=== PATIENT | male | born 1970 | race Caucasian/White ===

== ENCOUNTER 2017-03-13 10:57 | Emergency (ER) | payer BC ==
[2017-03-13 11:04] VITALS: BP 136/98; BMI 27.1
--- NOTE | 2017-03-13 11:31 | DR.GENAD ---
HPI - PCP Primary Care Physician: nfd - Complaint/Symptoms Chief Complaint Doctors Comments: Patient admits to dental pain is being treated by his dentist with hydrocodone 10/325 and augmentin. He states that he was referred to ENT for re-evaluation but he is out. He is afebrile and has no edema of jaw. He admits to a history of sinusitis and is being treated for such. Chief Complaint:: Pt had a root canal done 3 weeks ago and has been having severe pain. He seen his dentist and they referred him to an ENT. The ENT was unable to see him until another month - Source History Provided: Patient - Mode of Arrival Mode of Arrival: Ambulatory - Timing Onset of Chief Complaint: 02/11/17 PMH - PMH Past Medical History: No Past Surgical History: Yes Surgical History: Appendectomy, Cholecystectomy, Other Past Surgical History Comment: mass removed from lower back - Family History History of Family Medical Conditions: Yes Family Medical History: Diabetes Mellitus, [place], Hypertension - Social History Does patient currently use any type of tobacco product: No Have you used tobacco products in the last 12 months: No Type of Tobacco Use: None Does any household member use tobacco: No Alcohol Use: Rarely Do you use any recreational Drugs:: No Lives With: Family Lives Where: Home - infectious screening In the last 2 months have you had wt loss of >10#?: NO Have you had fever, night sweats or hemotysis?: No Have you traveled outside the country in the last 6 months?: Yes Details about traveling: [facility] on a cruise in december Isolation: Standard ROS - Review of Systems Constitutional: No Symptoms Reported Eyes: No Symptoms Reported ENTM: No Symptoms Reported Respiratoy: No Symptoms Reported Cardiovascular: No Symptoms Reported Gastrointestinal/Abdominal: No Symptoms Reported Genitourinary: No Symptoms Reported Neurological: No Symptoms Reported Musculoskeletal: No Symptoms Reported Integumentary: No Symptoms Reported Hematologic/Lymphatic: No Symptoms Reported Endocrine: No Symptoms Reported Psychiatric: No Symptoms Reported All Other Systems: Reviewed and Negative PE - Vital Signs Vitals: Temperature 98.1 F Pulse Rate 97 Respiratory Rate 18 Blood Pressure 136/98 O2 Sat by Pulse Oximetry 100 - General Limitations: No Limitations General Appearance: Alert, In No Apparent Distress - Head Head Exam: Normal Inspection - Eyes Eye exam: Normal Appearance - ENT ENT Exam: Normal Exam External Ear Exam: Normal External Inspection TM/Canal Exam: Right Normal Nose Exam: Normal Nose Exam Mouth Exam: Normal Inspection Throat Exam: Normal Inspection - Neck Neck Exam: Normal Inspection, Full ROM - Chest Chest Inspection: Normal Inspection - Respiratory Respiratory Exam: Normal Lung Sounds Bilat Respiratory Exam: Bilateral Clear to Auscultation - Cardiovascular Cardiovascular Exam: Regular Rate, Normal Rhythm - Abdominal Exam Abdominal Exam: Normal Inspection Abdominal Tenderness: negative: RUQ, RLQ, LUQ, LLQ, Epigastrium, Suprapubic, Diffuse, Mild, Moderate, Severe, Other - Extremities Extremities Exam: Normal Inspection, Full ROM - Back Back Exam: Normal Inspection - Neurologic Neurological Exam: Alert, Oriented X3, CN II-XII Intact - Psychiatric Psychiatric Exam: Normal Affect - Skin Skin Exam: Warm, Dry, Intact ROR - XRAY XRAY Interpreted by: Radiologist (Significant opacification of the left maxillary, ethmoid and both frontal sinuses with compromise of the left nasal airway. Right maxillary, ethmoid and both sphenoid sinuses are well aerated and clear. The left ostiomeatal complex is completlly occulded by mucosal soft tissue. The right ostiomeatal complex is completely occluded by mucosal soft tissue. The right osteomeatal complex is clear.) - Diagnosis Discharge Problem: Chronic panethmoidal sinusitis - Discharge Plan Condition: Stable - Follow ups/Referrals Follow ups/Referrals: NFD,None [Primary Care Provider] - 3 days - Instructions
--- NOTE | 2017-03-13 12:34 | CT ---
HISTORY: Chronic sinusitis. Patient states sinus pain and headache and left-sided toothache since Fr iday Study: CT paranasal sinuses without contrast Comparison: No priors Technique: Multiple axial images of the paranasal sinuses were obtained without the administration o f IV contrast. Coronal and sagittal reformats were performed and reviewed. Findings: Right maxillary and ethmoid sinus and the sphenoid sinuses are well aerated and clear . There is tot al opacification of the left maxillary sinus and left ostiomeatal complex. There is near-total opaci fication of the left ethmoid sinus and left nasal airway. The bony nasal septum is midline . There i s mucosal thickening present involving both frontal sinuses. No significant air-fluid level is seen. There is bilateral nasal turbinate swelling. Visualized portions of the posterior fossa and intracr anial structures are unremarkable as well. IMPRESSION: Significant opacification of left maxillary, ethmoid and both frontal sinuses with compromise of the left nasal airway as described. Right maxillary, ethmoid and both sphenoid sinuses are well aerated and clear. The left ostiomeatal complex is completely occluded by mucosal soft tissue. The right os tiomeatal complex is clear. Reported By:
== END 2017-03-13 12:48 | disposition home or self-care (01) ==
LOC: ER 11:12
DX: J32.2 Chronic ethmoidal sinusitis (principal)
CPT/HCPCS: 70486; 99282

== ENCOUNTER 2017-12-22 07:36 | Emergency (ER) | payer BC ==
[2017-12-22] MEDS ORDERED: NS 1000 ML 1,000 ML ONE (07:39)
[2017-12-22] MEDS ORDERED: TORADOL 30 MG VIAL ONE (07:43)
[2017-12-22] MEDS ORDERED: ZOFRAN INJ 4 MG VIAL ONE (07:43)
[2017-12-22 07:54] VITALS: BP 134/84; BMI 24.3
[2017-12-22] MEDS ORDERED: TORADOL 30 MG VIAL IVP ONE (07:55)
[2017-12-22] MEDS ORDERED: ZOFRAN INJ 4 MG VIAL IVP ONE (07:55)
[2017-12-22] MEDS ORDERED: DILAUDID INJ IVP ONE (07:57)
[2017-12-22] MEDS ORDERED: NS 1000 ML 1,000 ML IV ONE (07:58)
[2017-12-22] MEDS ORDERED: DILAUDID INJ ONE (07:59)
--- NOTE | 2017-12-22 08:26 | DR.GENAD ---
HPI - PCP Primary Care Physician: demetrius - HPI Comment HPI Comment: NO FEVER OR DYSURIA. GETTING WORSE. - Complaint/Symptoms Chief Complaint Doctors Comments: LEFT FLANK AND LEFT ABDOMINAL PAIN NOTED THIS AM WITH N/V. Chief Complaint:: patient stated he started having left flank pain this morning that comes around to his lower abd. pt statted he has a history of kidney stones - Nurses notes reviewed Nurses Notes Review: Yes - Source History Provided: Patient - Mode of Arrival Mode of Arrival: Ambulatory - Timing Onset of Chief Complaint: 12/22/17 Came on: Suddenly - Duration Duration: Constant Duration: Hours - Severity Severity: Moderate PMH - PMH Past Medical History: No Past Surgical History: Yes Surgical History: Appendectomy, Cholecystectomy, Other - Family History History of Family Medical Conditions: Yes Family Medical History: Diabetes Mellitus, [place], Hypertension - Social History Does patient currently use any type of tobacco product: No Have you used tobacco products in the last 12 months: No Type of Tobacco Use: None Does any household member use tobacco: No Alcohol Use: None Do you use any recreational Drugs:: No Lives With: Family Lives Where: Home - infectious screening In the last 2 months have you had wt loss of >10#?: NO Have you had fever, night sweats or hemotysis?: No Have you traveled outside the country in the last 6 months?: No Isolation: Standard ROS - Review of Systems Constitutional: No Symptoms Reported Eyes: No Symptoms Reported ENTM: No Symptoms Reported Respiratoy: No Symptoms Reported Cardiovascular: No Symptoms Reported Gastrointestinal/Abdominal: Nausea, Vomiting Genitourinary: Pain, Other (LEFT FLANK PAIN) Neurological: No Symptoms Reported Musculoskeletal: Back Pain Integumentary: No Symptoms Reported Hematologic/Lymphatic: No Symptoms Reported Endocrine: No Symptoms Reported All Other Systems: Reviewed and Negative PE - Vital Signs Vitals: Temperature 98.9 F Pulse Rate 99 Respiratory Rate 20 Blood Pressure 134/84 O2 Sat by Pulse Oximetry 99 - General Limitations: No Limitations General Appearance: In No Apparent Distress - Head Head Exam: Normal Inspection - Eyes Eye exam: Normal Appearance - ENT ENT Exam: Normal Exam External Ear Exam: Normal External Inspection TM/Canal Exam: Bilateral Normal Nose Exam: Normal Nose Exam Mouth Exam: Normal Inspection Throat Exam: Normal Inspection - Neck Neck Exam: Normal Inspection - Chest Chest Inspection: Normal Inspection - Respiratory Respiratory Exam: Normal Lung Sounds Bilat Respiratory Exam: Bilateral Clear to Auscultation - Cardiovascular Cardiovascular Exam: Regular Rate, Normal Rhythm, Normal Heart Sounds - Abdominal Exam Abdominal Exam: Normal Bowel Sounds, Soft, Tenderness (LEFT FLANK AND LEFT LOWER ABDOMEN.) Abdominal Tenderness: LLQ, Suprapubic, Moderate - Extremities Extremities Exam: Normal Inspection - Back Back Exam: (L) CVA Tenderness - Neurologic Neurological Exam: Alert, Oriented X3 - Psychiatric Psychiatric Exam: Anxious - Skin Skin Exam: Normal Color MDM - Additional Information Additional Information Obtained From: Family - Differential Diagnosis Differential Diagnosis: KIDNEY STONE, UTI, MUSCULOSKELETAL PAIN Course - Treatment Treatment: SEE ORDERS. 1L NS IV BOLUS AND IV ZOFRAN, PHENERGAN, TORADOL AND DILAUDID IN ED. - Reevaluation 1st: Improved - Education/Counseling Education/Counseling: Patient, Family, Education Educated On: Treatment, Diagnosis, Needs for Follow Up ROR - Labs Reviewed Laboratory Results Reviewed?: Yes Result Diagrams: 12/22/17 08:58 12/22/17 08:58 Laboratory: WBC 10.9 X10^3/uL (3.6-10.0) H 12/22/17 08:58 RBC 4.83 X10^6/uL (4.7-6.0) 12/22/17 08:58 Hgb 14.6 g/dL (13.5-18.0) 12/22/17 08:58 Hct 42.2 % (42.0-54.0) 12/22/17 08:58 MCV 87.3 fL (80.0-100.0) 12/22/17 08:58 MCH 30.1 pg (27.0-34.0) 12/22/17 08:58 MCHC 34.5 g/dL (33.0-35.0) 12/22/17 08:58 RDW 13.4 % (11.6-16.5) 12/22/17 08:58 Plt Count 231 X10^3/uL (150.0-450.0) 12/22/17 08:58 MPV 8.1 fL (7.4-11.0) 12/22/17 08:58 Neut % 82.1 % (42.0-75.0) H 12/22/17 08:58 Lymph % 11.3 % (21.0-51.0) L 12/22/17 08:58 [place] % 4.9 % (0.0-13.0) 12/22/17 08:58 Eos % 0.6 % (0.9-2.9) L 12/22/17 08:58 Baso % 1.1 % (0.2-1.0) H 12/22/17 08:58 Neut # 8.9 x10^3/uL (2.2-4.8) H 12/22/17 08:58 Lymph # 1.2 X10^3/uL (1.3-2.9) L 12/22/17 08:58 [place] # 0.5 x10^3/uL (0.3-0.8) 12/22/17 08:58 Eos # 0.1 x10^3/uL (0.0-0.2) 12/22/17 08:58 Baso # 0.1 X10^3/uL (0.0-0.1) 12/22/17 08:58 Absolute Nucleated RBC 0.0 /100WBC 12/22/17 08:58 Sodium 143 mmol/L (136-145) 12/22/17 08:58 Corrected Sodium 145 mmol/L (136-145) 12/22/17 08:58 Potassium 3.6 mmol/L (3.5-5.1) 12/22/17 08:58 Chloride 108 mmol/L (98-107) H 12/22/17 08:58 Carbon Dioxide 28.3 mmol/L (21-32) 12/22/17 08:58 BUN 14 mg/dL (7-18) 12/22/17 08:58 Creatinine 1.06 mg/dL (0.70-1.30) 12/22/17 08:58 Est GFR (MDRD) Af Amer > 60 (>60) 12/22/17 08:58 Est GFR (MDRD) Non-Af > 60 (>60) 12/22/17 08:58 Glucose 166 mg/dL (65-99) H 12/22/17 08:58 Calcium 8.2 mg/dL (8.5-10.1) L 12/22/17 08:58 Corrected Calcium 8.8 mg/dL (8.5-10.1) 12/22/17 08:58 Total Bilirubin 0.40 mg/dL (0.2-1.0) 12/22/17 08:58 AST 24 Units/L (15-37) 12/22/17 08:58 ALT 36 Units/L (12-78) 12/22/17 08:58 Alkaline Phosphatase 75 Units/L (46-116) 12/22/17 08:58 Total Protein 6.1 g/dL (6.4-8.2) L 12/22/17 08:58 Albumin 3.2 g/dL (3.4-5.0) L 12/22/17 08:58 Globulin 2.9 g/dL (2.5-4.5) 12/22/17 08:58 Albumin/Globulin Ratio 1.1 Ratio (1.1-2.1) 12/22/17 08:58 Specimen Type Clean catch urine 12/22/17 08:12 Urine Color Yellow (YELLOW) 12/22/17 08:12 Urine Appearance Slightly hazy (CLEAR) 12/22/17 08:12 Urine pH 5.0 (5.0 - 8.0) 12/22/17 08:12 Ur Specific Veteran 1.025 (1.000-1.030) 12/22/17 08:12 Urine Protein 2+ (NEGATIVE) 12/22/17 08:12 Urine Glucose (UA) Negative (NEGATIVE) 12/22/17 08:12 Urine Ketones 1+ (NEGATIVE) 12/22/17 08:12 Urine Occult Blood 2+ (NEGATIVE) 12/22/17 08:12 Urine Nitrite Negative (NEGATIVE) 12/22/17 08:12 Urine Bilirubin Negative (NEGATIVE) 12/22/17 08:12 Urine Urobilinogen 1+ (NORMAL) 12/22/17 08:12 Ur Leukocyte Esterase 1+ (NEGATIVE) 12/22/17 08:12 Urine RBC 0 - 3 /HPF (NEGATIVE) 12/22/17 08:12 Urine WBC 0 - 4 /HPF (NEGATIVE) 12/22/17 08:12 Ur Squamous Epith Cells Rare /HPF (NEGATIVE) 12/22/17 08:12 Amorphous Sediment 2+ /HPF (NEGATIVE) 12/22/17 08:12 Urine Bacteria Negative /HPF (NEGATIVE) 12/22/17 08:12 Hyaline Casts Rare /LPF (NEGATIVE) 12/22/17 08:12 Ur Culture Indicated? No/not indicated 12/22/17 08:12 - XRAY XRAY Interpreted by: Radiologist XRAY Findings: REPORT DISCUSS WITH PATIENT. - Diagnosis Discharge Problem: Left flank pain, Kidney stone on left side - Discharge Plan Condition: Stable Prescriptions: Hydrocodone-Acet 5 mg/325 mg [[place] 5/325 mg Tab] 1 tab PO Q6H PRN #15 tab PRN Reason: Pain Ketorolac Tromethamine [Toradol Tab] 10 mg PO Q8H PRN #15 tab PRN Reason: Pain Tamsulosin HCl [Flomax] 0.4 mg PO DAILY #10 cap - Follow ups/Referrals Follow ups/Referrals: NFD,None [Primary Care Provider] - 3 days CESILIA DAVILA [STAFF PHYSICIAN] - 3 days DOMINIK ARMENDARIZ [CONSULTING PHYSICIAN] - 3 days - Instructions Instructions: Kidney Stones, [id number], Hydronephrosis Additional Instructions: RETURN TO ED IF WORSE.
[2017-12-22 08:33] LABS: BILIRUBIN,URINE NEGATIVE (NEGATIVE); BLOOD/HEMOGLOBIN,URINE 2+ (NEGATIVE); GLUCOSE, URINE NEGATIVE (NEGATIVE); KETONES,URINE 1+ (NEGATIVE); LEUKOCYTE ESTERASE ,URINE 1+ (NEGATIVE); NITRITES,URINE NEGATIVE (NEGATIVE); PROTEIN,URINE 2+ (NEGATIVE); UROBILINOGEN,URINE 1+ (NORMAL)
[2017-12-22 08:37] LABS: APPEARANCE,URINE SLIGHTLY HAZY (CLEAR); COLOR,URINE YELLOW (YELLOW)
[2017-12-22] MEDS ORDERED: PHENERGAN INJ 25 MG IV ONE (08:49)
--- NOTE | 2017-12-22 08:49 | CT ---
HISTORY: Left flank pain Study: CT abdomen without contrast Comparison: None Technique: Multiple axial, coronal, and sagittal CT images of the abdomen were reviewed without contr ast. AEC was utilized. Findings: The lung bases are clear. There is no pneumoperitoneum. No destructive osseous lesions are identified . The patient is status post cholecystectomy. The liver, spleen, pancreas, adrenals, and right kidney are unremarkable. There is mild left-sided perinephric stranding and hydronephrosis with a 2-[address] one at the UVJ. There is no free fluid. No bowel wall thickening or distention is identified on this noncontrast exam. IMPRESSION: 2-3 mm left UVJ stone with mild obstructive uropathy. Reported By:
[2017-12-22] MEDS ORDERED: PHENERGAN INJ 25 MG ONE (08:50)
[2017-12-22 08:53] LABS: RBC,URINE 0 - 3 /HPF (NEGATIVE); SQUAMOUS EPITHELIAL CELL,UR RARE /HPF (NEGATIVE)
[2017-12-22 08:54] LABS: AMORPHOUS SEDIMENT,UR 2+ /HPF (NEGATIVE); BACTERIA,URINE NEGATIVE /HPF (NEGATIVE); HYALINE CASTS, URINE RARE /LPF (NEGATIVE)
[2017-12-22] MEDS ORDERED: FLOMAX PO ONE (08:58)
[2017-12-22 09:15] LABS: BASOPHILS # (AUTO) 0.1 X10^3/uL (0.0-0.1); BASOPHILS % (AUTO) 1.1 % (0.2-1.0); EOSINOPHILS # (AUTO) 0.1 x10^3/uL (0.0-0.2); EOSINOPHILS % (AUTO) 0.6 % (0.9-2.9); HEMATOCRIT 42.2 % (42.0-54.0); HEMOGLOBIN 14.6 g/dL (13.5-18.0); LYMPHOCYTES # (AUTO) 1.2 X10^3/uL (1.3-2.9); LYMPHOCYTES % (AUTO) 11.3 % (21.0-51.0); MEAN CORPUSCULAR HEMOGLOBIN 30.1 pg (27.0-34.0); MEAN CORPUSCULAR HGB CONC 34.5 g/dL (33.0-35.0); MEAN CORPUSCULAR VOLUME 87.3 fL (80.0-100.0); MEAN PLATELET VOLUME 8.1 fL (7.4-11.0); MONOCYTES # (AUTO) 0.5 x10^3/uL (0.3-0.8); MONOCYTES % (AUTO) 4.9 % (0.0-13.0); NEUTROPHILS # (AUTO) 8.9 x10^3/uL (2.2-4.8); NEUTROPHILS % (AUTO) 82.1 % (42.0-75.0); PLATELET COUNT 231 X10^3/uL (150.0-450.0); RED BLOOD COUNT 4.83 X10^6/uL (4.7-6.0); RED CELL DISTRIBUTION WIDTH 13.4 % (11.6-16.5); WHITE BLOOD COUNT 10.9 X10^3/uL (3.6-10.0)
[2017-12-22 09:27] LABS: ALANINE AMINOTRANSFERASE 36 Units/L (12-78); ALBUMIN 3.2 g/dL (3.4-5.0); ASPARTATE AMINO TRANSFERASE 24 Units/L (15-37); BLOOD UREA NITROGEN 14 mg/dL (7-18); CALCIUM 8.2 mg/dL (8.5-10.1); CARBON DIOXIDE 28.3 mmol/L (21-32); CHLORIDE 108 mmol/L (98-107); COR CA(FOR HYPOALB) 8.8 mg/dL (8.5-10.1); COR NA(FOR HYPERGLY) 145 mmol/L (136-145); CREATININE 1.06 mg/dL (0.70-1.30); SODIUM 143 mmol/L (136-145); eGFR BLACK RACES > 60 (>60); eGFR NON BLACK RACES > 60 (>60)
[2017-12-22 09:43] LABS: ALKALINE PHOSPHATASE 75 Units/L (46-116); TOTAL PROTEIN 6.1 g/dL (6.4-8.2)
== END 2017-12-22 10:13 | disposition home or self-care (01) ==
LOC: ER 07:36
DX: N20.0 Calculus of kidney (principal); R10.32 Left lower quadrant pain
CPT/HCPCS: 36415; 74176; 80053; 81001; 85025; 96365; 96367; 96374; 96375; 99283; 99284; A4222; J1170; J1885; J2405; J2550

== ENCOUNTER 2018-07-13 21:34 | Observation (INO) ==
--- NOTE | 2018-07-13 23:21 | DR.GENAD ---
HPI PCP Primary Care Physician: KEELY HPI Comment HPI Comment: THIS HAPPEN TINIGHT SUDDENLY WHILE PATIENT WAS WATCHING TV. PATIENT DENIES TRAUMA, NO FEVER OR SINUS DRAINAGE. DENIES HISTORY OF HYPERTENSION OR DIABETES. Complaint/Symptoms Chief Complaint Doctors Comments: PATIENT SEEN AT 23:12PM. RIGHT EYE PAIN AND BLURRED VISION RIGHT EYE. PATIENT SAID RIGHT HALF OF HIS FACE Chief Complaint:: Within the hour, the patient states he was watching tv and he noticed his vision was getting blurry. So he cleaned his glasses, and noticed his vision was getting more blurry. At the moment the patient feels pain from the inner right eye to the middle of the back of his head. Nurses notes reviewed Nurses Notes Review: Yes Source History Provided: Patient Mode of Arrival Mode of Arrival: Ambulatory Timing Onset of Chief Complaint: 07/13/18 Came on: Suddenly Duration Duration: Constant Duration: Hours Modifying Factors Worsens:: NONE Improves:: SLIGHT IMPROVEMENT SPONTAOUSLY. PMH PMH Past Medical History: No Past Surgical History: Yes Surgical History: Appendectomy, Cholecystectomy and Other Past Surgical History Comment: Mass removed from lower lumbar in back. Family History History of Family Medical Conditions: Yes Family Medical History: Diabetes Mellitus, Coronary Artery Disease and Heart Failure Social History Alcohol Use: None Do you use any recreational Drugs:: No Lives With: Alone Lives Where: Home infectious screening Have you traveled outside the country in the last 6 months?: No Isolation: Standard ROS Review of Systems Constitutional: No Symptoms Reported Eyes: Eye Pain, Blurred Vision (RT EYE.) and Diplopia (RT EYE.) ENTM: No Symptoms Reported; negative Ear Pain, Nose Discharge, Nose Congestion and Throat Pain Respiratoy: No Symptoms Reported Cardiovascular: No Symptoms Reported Gastrointestinal/Abdominal: No Symptoms Reported Genitourinary: No Symptoms Reported Neurological: Headache Musculoskeletal: No Symptoms Reported Integumentary: No Symptoms Reported Hematologic/Lymphatic: No Symptoms Reported Endocrine: No Symptoms Reported Psychiatric: No Symptoms Reported All Other Systems: Reviewed and Negative PE Vital Signs Vitals: Temperature 98.3 F Pulse Rate 89 Respiratory Rate 20 Blood Pressure 127/87 O2 Sat by Pulse Oximetry 97 General Limitations: No Limitations General Appearance: Alert and In No Apparent Distress Head Head Exam: Normal Inspection Eyes Eye exam: Normal Appearance, PERRL, EOMI and Mydrasis; negative Scleral Icterus , Conjunctival Injection, Nystagmus, Miosis, Periorbital Swelling and Periorbital Tenderness ENT ENT Exam: Normal Exam, Normal Oropharynx, Normal External Ear Exam and TM's Normal Bilaterally External Ear Exam: Normal External Inspection TM/Canal Exam: Left: Normal Nose Exam: Normal Nose Exam Mouth Exam: Normal Inspection Throat Exam: Normal Inspection Neck Neck Exam: Normal Inspection Chest Chest Inspection: Normal Inspection Respiratory Respiratory Exam: Normal Lung Sounds Bilat Respiratory Exam: Bilateral: Clear to Auscultation Cardiovascular Cardiovascular Exam: Regular Rate, Normal Rhythm and Normal Heart Sounds Abdominal Exam Abdominal Exam: Normal Inspection, Normal Bowel Sounds and Soft; negative Tenderness Extremities Extremities Exam: Normal Inspection Back Back Exam: Normal Inspection Neurologic Neurological Exam: Alert, Oriented X3, CN II-XII Intact, Normal Gait and Reflexes Normal; negative Motor Sensory Deficit Psychiatric Psychiatric Exam: Normal Affect and Normal Mood Skin Skin Exam: Warm, Dry, Intact and Normal Color MDM Differential Diagnosis Differential Diagnosis: AMAR[place]IS FUGUS, CVA, TIA, BLURRED VISION COURSE Treatment Treatment: SEE ORDERS. Consultation Consultation Comments: DISCUSS PATIENT WITH DR. MEJIAS. HE WILL ADMIT PATIENT. Education/Counseling Education/Counseling: Patient and Education Educated On: Diagnosis ROR Labs Reviewed Laboratory Results Reviewed?: Yes Result Diagrams: 07/14/18 02:06 07/14/18 02:06 Laboratory: WBC 7.7 X10^3/uL (3.6-10.0) 07/14/18 02:06 RBC 5.10 X10^6/uL (4.7-6.0) 07/14/18 02:06 Hgb 15.5 g/dL (13.5-18.0) 07/14/18 02:06 Hct 44.4 % (42.0-54.0) 07/14/18 02:06 MCV 87.0 fL (80.0-100.0) 07/14/18 02:06 MCH 30.4 pg (27.0-34.0) 07/14/18 02:06 MCHC 35.0 g/dL (33.0-35.0) 07/14/18 02:06 RDW 13.4 % (11.6-16.5) 07/14/18 02:06 Plt Count 246 X10^3/uL (150.0-450.0) 07/14/18 02:06 MPV 7.9 fL (7.4-11.0) 07/14/18 02:06 Neut % (Auto) 39.1 % (42.0-75.0) L 07/14/18 02:06 Lymph % (Auto) 49.7 % (21.0-51.0) 07/14/18 02:06 [place] % (Auto) 7.9 % (0.0-13.0) 07/14/18 02:06 Eos % (Auto) 2.3 % (0.9-2.9) 07/14/18 02:06 Baso % (Auto) 1.0 % (0.2-1.0) 07/14/18 02:06 Neut # (Auto) 3.0 x10^3/uL (2.2-4.8) 07/14/18 02:06 Lymph # (Auto) 3.8 X10^3/uL (1.3-2.9) H 07/14/18 02:06 [place] # (Auto) 0.6 x10^3/uL (0.3-0.8) 07/14/18 02:06 Eos # (Auto) 0.2 x10^3/uL (0.0-0.2) 07/14/18 02:06 Baso # (Auto) 0.1 X10^3/uL (0.0-0.1) 07/14/18 02:06 Absolute Nucleated RBC 0.0 /100WBC 07/14/18 02:06 INR Target Range - 07/14/18 02:06 INR 0.87 (0.8-1.3) 07/14/18 02:06 APTT 28.3 SECONDS (22.9-36.5) 07/14/18 02:06 PTT Comment - 07/14/18 02:06 Sodium 142 mmol/L (136-145) 07/14/18 02:06 Corrected Sodium TNP 07/14/18 02:06 Potassium 3.8 mmol/L (3.5-5.1) 07/14/18 02:06 Chloride 106 mmol/L (98-107) 07/14/18 02:06 Carbon Dioxide 31.7 mmol/L (21-32) 07/14/18 02:06 BUN 18 mg/dL (7-18) 07/14/18 02:06 Creatinine 0.98 mg/dL (0.70-1.30) 07/14/18 02:06 Est GFR (MDRD) Af Amer > 60 (>60) 07/14/18 02:06 Est GFR (MDRD) Non-Af > 60 (>60) 07/14/18 02:06 Glucose 102 mg/dL (65-99) H 07/14/18 02:06 Calcium 8.8 mg/dL (8.5-10.1) 07/14/18 02:06 Corrected Calcium TNP 07/14/18 02:06 Total Bilirubin 0.30 mg/dL (0.2-1.0) 07/14/18 02:06 AST 19 Units/L (15-37) 07/14/18 02:06 ALT 35 Units/L (12-78) 07/14/18 02:06 Alkaline Phosphatase 93 Units/L (46-116) 07/14/18 02:06 Total Protein 6.8 g/dL (6.4-8.2) 07/14/18 02:06 Albumin 3.6 g/dL (3.4-5.0) 07/14/18 02:06 Globulin 3.2 g/dL (2.5-4.5) 07/14/18 02:06 Albumin/Globulin Ratio 1.1 Ratio (1.1-2.1) 07/14/18 02:06 XRAY XRAY Interpreted by: Radiologist XRAY Findings: REPORT DISCUSS WITH PATIENT. EKG Rate: 64 [place]: Normal Rhythm: NSR Block: None ST: Normal Diagnosis Discharge Problem: Amaurosis fugax, Brain TIA, Blurred vision
[2018-07-13] MEDS ORDERED: FUL-GLO STRIP ONE ×2 (23:35→23:42)
--- NOTE | 2018-07-13 23:46 | CT ---
CT head without contrast Indication: Blurred vision in the left eye Comparison: None Technique: CT images of the head were obtained without contrast. Automatic exposure control was utili mimoOn. Findings: There is no acute bleed, mass effect, or abnormal extra-axial collection. The ventricles ar e symmetric and nondilated. The intraorbital soft tissues are grossly normal. No suspicious skeletal lesion. The visualized paranasal sinuses and mastoid air cells are essentially clear, with changes of previous left-sided sinus surgery. Impression: No acute intracranial abnormality. Reported By:
[2018-07-14 02:36] LABS: BASOPHILS # (AUTO) 0.1 X10^3/uL (0.0-0.1); EOSINOPHILS # (AUTO) 0.2 x10^3/uL (0.0-0.2); EOSINOPHILS % (AUTO) 2.3 % (0.9-2.9); HEMATOCRIT 44.4 % (42.0-54.0); HEMOGLOBIN 15.5 g/dL (13.5-18.0); LYMPHOCYTES # (AUTO) 3.8 X10^3/uL (1.3-2.9); LYMPHOCYTES % (AUTO) 49.7 % (21.0-51.0); MEAN CORPUSCULAR HEMOGLOBIN 30.4 pg (27.0-34.0); MEAN PLATELET VOLUME 7.9 fL (7.4-11.0); MONOCYTES # (AUTO) 0.6 x10^3/uL (0.3-0.8); MONOCYTES % (AUTO) 7.9 % (0.0-13.0); NEUTROPHILS % (AUTO) 39.1 % (42.0-75.0); PLATELET COUNT 246 X10^3/uL (150.0-450.0); RED CELL DISTRIBUTION WIDTH 13.4 % (11.6-16.5); WHITE BLOOD COUNT 7.7 X10^3/uL (3.6-10.0)
[2018-07-14 02:50] LABS: ALANINE AMINOTRANSFERASE 35 Units/L (12-78); ALBUMIN 3.6 g/dL (3.4-5.0); ALKALINE PHOSPHATASE 93 Units/L (46-116); ASPARTATE AMINO TRANSFERASE 19 Units/L (15-37); BLOOD UREA NITROGEN 18 mg/dL (7-18); CALCIUM 8.8 mg/dL (8.5-10.1); CARBON DIOXIDE 31.7 mmol/L (21-32); CHLORIDE 106 mmol/L (98-107); CREATININE 0.98 mg/dL (0.70-1.30); SODIUM 142 mmol/L (136-145); TOTAL PROTEIN 6.8 g/dL (6.4-8.2); eGFR NON BLACK RACES > 60 (>60)
[2018-07-14] MEDS ORDERED: ASPIRIN PO ONE (03:14)
[2018-07-14] MEDS ORDERED: ASPIRIN ONE (03:17)
[2018-07-14 05:17] VITALS: BMI 30.7
[2018-07-14 07:04] LABS: CHOL/HDL RATIO 5.4 (0.0-5.0); CHOLESTEROL 194 mg/dL (0-200); CREATINE KINASE 204 Units/L (39-308); HDL CHOLESTEROL 36 mg/dL (40-60); MAGNESIUM 2.1 mg/dL (1.7-2.9); TRIGLYCERIDES 82 mg/dL (0-150); TROPONIN I < 0.02 ng/mL (0-1.5)
[2018-07-14 07:25] LABS: CKMB % 0.9 % (<4); CREATINE KINASE MB 1.8 ng/mL (0-4.0)
[2018-07-14] MEDS: ASPIRIN PO SCH (09:19)
[2018-07-14 10:53] LABS: CKMB % 0.8 % (<4); CREATINE KINASE 197 Units/L (39-308); CREATINE KINASE MB 1.6 ng/mL (0-4.0); TROPONIN I < 0.02 ng/mL (0-1.5)
[2018-07-14 17:36] LABS: CKMB % 0.9 % (<4); CREATINE KINASE 167 Units/L (39-308); CREATINE KINASE MB 1.5 ng/mL (0-4.0); TROPONIN I < 0.02 ng/mL (0-1.5)
--- NOTE | 2018-07-14 18:05 | DR.H&P ---
H&P - History & Physical for Day of: H&P Date: 07/14/18 - Chief Complaint Chief Complaint: SUDDEN ONSET VISION IMPAIRMENT - History of Present Illness History of Present Illness: 47 WM ER ADMISSION WITH CO SUDDEN ONSET OF VISUAL IMPAIRMENT WHILE AT REST AND [employer]. PT STATES HE DOES WEAR CONTACTS OR GLASSES , BUT DENIES ANY NEW PRESCRIPTION CHANGES. NO CP OR SOB. PT HAS CT HEAD ON ADMISSION. PT DENIES ANY HX OF DM, CAD, OR HTN - Past Medical History Past Medical History: denies: Coronary Artery Disease, Diabetes, Hypertension - Past Surgical History Surgical History: Cholecystectomy, Other - Family History Family Medical History: Diabetes Mellitus, Coronary Artery Disease - Social History Does patient currently use any type of tobacco product: No Have you used tobacco products in the last 12 months: No Type of Tobacco Use: None Does any household member use tobacco: No Alcohol Use: Occasionally Drug Use: None - Medications Home Medications: No Known Drug Allergies Allergy (Verified 12/22/17 07:37) CONTINUE taking the following medications NK 07/14/18 [History] - Review of Systems Constitutional: No Symptoms Reported Eyes: Vision Change ENT: No Symptoms Reported Respiratory: No Symptoms Reported Cardiovascular: No Symptoms Reported Gastrointestinal: No Symptoms Reported Genitourinary: No Symptoms Reported Musculoskeletal: No Symptoms Reported Skin: No Symptoms Reported Neurological: Other (MEAD) - Physical Exam Vital Signs: Temperature 97.6 F Pulse Rate [Left Brachial] 65 Pulse Rate 89 Respiratory Rate 18 Blood Pressure [Left Arm] 131/78 Blood Pressure 127/87 O2 Sat by Pulse Oximetry 99 Oriented: Normal Eyes: Blurred Vision Ear: Normal Nose: Normal Throat: Normal Respiratory: Clear Throughout Cardiovascular: Normal : Normal, Hematuria Palpation: Normal Tenderness: Normal Skin: Normal Musculoskeletal: Normal Psychiatric: Normal Mood Description: Calm Speech Pattern: Clear, Appropriate - Assessment/Plan (1) Amaurosis fugax Status: Acute Plan: ADMIT, SERIAL CARDIAC ENZYMES, EKGS. MRI BRAIN W/O. OPTH CONSULTATION. BP MONITORING, ASPIRIN THERAPY (2) Blurred vision Status: Acute - Allergies Allergies/Adverse Reactions: Allergies Allergy/AdvReac Type Severity Reaction Status Date / Time No Known Drug Allergies Allergy Verified 12/22/17 07:37
--- NOTE | 2018-07-14 18:11 | MRI ---
MRI brain and orbits Indication: Patient with detached retina and complaint of left thigh blurring Technique: Multiplanar MRI images of the brain was performed with specialized sequences through the [facility]. Findings: There is no restricted diffusion. The ventricles and extra-axial spaces are within normal l imits. The ventricles and extra-axial spaces are unremarkable. The sella and posterior fossa show no abnormalities. The orbits are normal in appearance. The globes show no abnormality. The ocular muscle s are normal in bulk and position. Bilateral optic nerves are normal in size and without evidence of edema. Conclusion: Normal MRI of the brain and orbits. Reported By:
[2018-07-14] MEDS ORDERED: TYLENOL 325 MG TAB PO PRN (19:35)
[2018-07-15 04:26] VITALS: BP 103/66
[2018-07-15 06:16] LABS: ALANINE AMINOTRANSFERASE 31 Units/L (12-78); ALBUMIN 3.2 g/dL (3.4-5.0); ALKALINE PHOSPHATASE 94 Units/L (46-116); ASPARTATE AMINO TRANSFERASE 15 Units/L (15-37); BLOOD UREA NITROGEN 18 mg/dL (7-18); CALCIUM 8.4 mg/dL (8.5-10.1); CARBON DIOXIDE 27.1 mmol/L (21-32); CHLORIDE 106 mmol/L (98-107); COR NA(FOR HYPERGLY) 140 mmol/L (136-145); CREATININE 1.04 mg/dL (0.70-1.30); SODIUM 140 mmol/L (136-145); TOTAL PROTEIN 6.3 g/dL (6.4-8.2); eGFR NON BLACK RACES > 60 (>60)
[2018-07-15] MEDS ORDERED: K-RIDER 10 MEQ/NS 100 ML 10 MEQ/100 ML BAG IV PRN (06:25)
[2018-07-15] MEDS ORDERED: POTASSIUM CHLORIDE LIQ 20 MEQ UDC PO PRN (06:25)
[2018-07-15] MEDS ORDERED: POTASSIUM CHL 60 MEQ/NS 0.45% 500 ML IV PRN (06:25)
[2018-07-15] MEDS ORDERED: K-LYTE EFFERVESCENT PO PRN (06:25)
[2018-07-15] MEDS ORDERED: POTASSIUM CHL 40 MEQ/NS 0.45% 500 ML IV PRN (06:25)
[2018-07-15 06:38] LABS: BASOPHILS % (AUTO) 0.7 % (0.2-1.0); EOSINOPHILS # (AUTO) 0.2 x10^3/uL (0.0-0.2); HEMATOCRIT 44.7 % (42.0-54.0); HEMOGLOBIN 15.7 g/dL (13.5-18.0); LYMPHOCYTES # (AUTO) 3.2 X10^3/uL (1.3-2.9); LYMPHOCYTES % (AUTO) 47.4 % (21.0-51.0); MEAN CORPUSCULAR HEMOGLOBIN 30.5 pg (27.0-34.0); MEAN CORPUSCULAR HGB CONC 35.1 g/dL (33.0-35.0); MEAN CORPUSCULAR VOLUME 86.9 fL (80.0-100.0); MEAN PLATELET VOLUME 8.4 fL (7.4-11.0); MONOCYTES # (AUTO) 0.5 x10^3/uL (0.3-0.8); MONOCYTES % (AUTO) 7.4 % (0.0-13.0); NEUTROPHILS # (AUTO) 2.8 x10^3/uL (2.2-4.8); NEUTROPHILS % (AUTO) 41.5 % (42.0-75.0); PLATELET COUNT 244 X10^3/uL (150.0-450.0); RED BLOOD COUNT 5.14 X10^6/uL (4.7-6.0); RED CELL DISTRIBUTION WIDTH 13.3 % (11.6-16.5); WHITE BLOOD COUNT 6.8 X10^3/uL (3.6-10.0)
[2018-07-15] MEDS: ASPIRIN PO SCH (09:33)
--- NOTE | 2018-07-18 14:34 | PCM.DCPLAN ---
Discharge Summary - Admission Date Date of Admission: 07/14/18 - Discharge Date Discharge Date: 07/15/18 - Admission Diagnoses (1) Amaurosis fugax Status: Acute (2) Blurred vision Status: Acute - Discharge Diagnoses Discharge Diagnosis: SAME ADMISSION + HYPERLIPIDEMIA - Discharge Medications Discharge Medications: Home Medication List NK 07/14/18 [History] Prescriptions: - Hospital Course Vital Signs: Temperature 97.6 F Pulse Rate [Left Brachial] 55 Pulse Rate 89 Respiratory Rate 20 Blood Pressure [Left Arm] 103/66 Blood Pressure 127/87 O2 Sat by Pulse Oximetry 93 Latest Lab Results: Laboratory Last Values WBC 6.8 X10^3/uL (3.6-10.0) 07/15/18 04:50 RBC 5.14 X10^6/uL (4.7-6.0) 07/15/18 04:50 Hgb 15.7 g/dL (13.5-18.0) 07/15/18 04:50 Hct 44.7 % (42.0-54.0) 07/15/18 04:50 MCV 86.9 fL (80.0-100.0) 07/15/18 04:50 MCH 30.5 pg (27.0-34.0) 07/15/18 04:50 MCHC 35.1 g/dL (33.0-35.0) H 07/15/18 04:50 RDW 13.3 % (11.6-16.5) 07/15/18 04:50 Plt Count 244 X10^3/uL (150.0-450.0) 07/15/18 04:50 MPV 8.4 fL (7.4-11.0) 07/15/18 04:50 Neut % (Auto) 41.5 % (42.0-75.0) L 07/15/18 04:50 Lymph % (Auto) 47.4 % (21.0-51.0) 07/15/18 04:50 [place] % (Auto) 7.4 % (0.0-13.0) 07/15/18 04:50 Eos % (Auto) 3.0 % (0.9-2.9) H 07/15/18 04:50 Baso % (Auto) 0.7 % (0.2-1.0) 07/15/18 04:50 Neut # (Auto) 2.8 x10^3/uL (2.2-4.8) 07/15/18 04:50 Lymph # (Auto) 3.2 X10^3/uL (1.3-2.9) H 07/15/18 04:50 [place] # (Auto) 0.5 x10^3/uL (0.3-0.8) 07/15/18 04:50 Eos # (Auto) 0.2 x10^3/uL (0.0-0.2) 07/15/18 04:50 Baso # (Auto) 0.0 X10^3/uL (0.0-0.1) 07/15/18 04:50 Absolute Nucleated RBC 0.2 /100WBC 07/15/18 04:50 INR Target Range - 07/14/18 02:06 INR 0.87 (0.8-1.3) 07/14/18 02:06 APTT 28.3 SECONDS (22.9-36.5) 07/14/18 02:06 PTT Comment - 07/14/18 02:06 Sodium 140 mmol/L (136-145) 07/15/18 04:50 Corrected Sodium 140 mmol/L (136-145) 07/15/18 04:50 Potassium 3.4 mmol/L (3.5-5.1) L 07/15/18 04:50 Chloride 106 mmol/L (98-107) 07/15/18 04:50 Carbon Dioxide 27.1 mmol/L (21-32) 07/15/18 04:50 BUN 18 mg/dL (7-18) 07/15/18 04:50 Creatinine 1.04 mg/dL (0.70-1.30) 07/15/18 04:50 Est GFR (MDRD) Af Amer > 60 (>60) 07/15/18 04:50 Est GFR (MDRD) Non-Af > 60 (>60) 07/15/18 04:50 Glucose 111 mg/dL (65-99) H 07/15/18 04:50 Calcium 8.4 mg/dL (8.5-10.1) L 07/15/18 04:50 Corrected Calcium 9.0 mg/dL (8.5-10.1) 07/15/18 04:50 Magnesium 1.9 mg/dL (1.7-2.9) 07/15/18 04:50 Total Bilirubin 0.30 mg/dL (0.2-1.0) 07/15/18 04:50 AST 15 Units/L (15-37) 07/15/18 04:50 ALT 31 Units/L (12-78) 07/15/18 04:50 Alkaline Phosphatase 94 Units/L (46-116) 07/15/18 04:50 Creatine Kinase 167 Units/L (39-308) 07/14/18 16:53 CK-MB (CK-2) 1.5 ng/mL (0-4.0) 07/14/18 16:53 CK/CKMB % Calc 0.9 % (<4) 07/14/18 16:53 Troponin I < 0.02 ng/mL (0-1.5) 07/14/18 16:53 Total Protein 6.3 g/dL (6.4-8.2) L 07/15/18 04:50 Albumin 3.2 g/dL (3.4-5.0) L 07/15/18 04:50 Globulin 3.1 g/dL (2.5-4.5) 07/15/18 04:50 Albumin/Globulin Ratio 1.0 Ratio (1.1-2.1) L 07/15/18 04:50 Triglycerides 82 mg/dL (0-150) 07/14/18 06:11 Cholesterol 194 mg/dL (0-200) 07/14/18 06:11 LDL Cholesterol, Calc 142 mg/dL (0-100) H 07/14/18 06:11 HDL Cholesterol 36 mg/dL (40-60) L 07/14/18 06:11 Cholesterol/HDL Ratio 5.4 (0.0-5.0) H 07/14/18 06:11 Hospital Course: PT IS 47 WM ER ADMISSION AFTER ONSET OF SUDDEN VISION IMPAIRMENT TO RIGHT EYE WHILE AT REST. PT STATES HE WEAR CONTACTS OR GLASSES FOR NEAR SIGHTED VISION. PT HAD ARRIVED HOME FROM WORK, REMOVED CONTACT LENS, WAS WEARING CORRECTIVE LENS AND RIGHT EYE/ HALF OF VISUAL FIELD BEGAN TO BLUR THEN HE LOST PERIPHERAL VISION. PT HAD VERY DULL MEAD OVER OPPOSITE, LEFT BROW. PT DENIES ANY DIZZINESS CP OR SOB. IN ER PT HAD CT HEAD W/O ACUTE FINDINGS. PT WAS ADMITTED HAD SERIAL CE ADN EKG'S, WHICH WERE NORMAL, AND NORMAL SINUS RHYTHM. PT HAS CBC CMP AND FLP , WITH ELEVATED LIPID LEVELS. PT TREATED WITH ASPIRIN THERAPY AND BP CONTROL. PT WAS EVALUATED BY OPTH,, DR GARCIA. PT REPORT SLIGHT IMPROVEMENT IN MEAD AND VISION ON DAY 2, MRI BRAIN/ ORBITS WITHOUT ACUTE FINDINGS. PT WAS D/C HOME TO FOLLOW UP WITH HIS [employer] DR HEWITT IN [place]. PT CONDITION ON D/C WAS IMPROVED, NOT RESOLVED AND STABLE - Discharge Plan Disposition: 01 HOME, SELF-CARE Condition: Stable - Follow ups/Referrals Follow ups/Referrals: kaylie hewitt [Other] - 07/16/18 9:15 am ANDI GORDON [Nurse Practitioner] - 07/23/18 2:45 pm - Instructions Instructions: Blurred Vision, Adult, How to Take Your Blood Pressure, Easy-to- Read, Amaurosis Fugax, Transient Ischemic Attack, [id number], Form - Blood Pressure Record Sheet, Hypertension, [id number] Additional Instructions: report to Dr Hewitt for eye exam this am resume home meds keep bp diary follow up with pcp in one week Forms: Patient Portal
== END 2018-07-15 10:15 | disposition home or self-care (01) ==
LOC: MED/SURG 21:34 → ER 21:34 → MED/SURG 07-14 04:15
PROVIDERS: ADMIT Internal Medicine; ATTEND Internal Medicine
DX: H53.8 Other visual disturbances; G45.8 Other transient cerebral ischemic attacks and related syndromes; G45.3 Amaurosis fugax
CPT/HCPCS: 36415; 70450; 70540; 80053; 80061; 82550; 82553; 83735; 84484; 85025; 85610; 85730; 93005; 93010; 94760; 96365; 99284; A4216; A4222; G0378; J3490; J8499

== ENCOUNTER 2019-07-14 12:12 | Observation (INO) ==
[2019-07-14 12:21] VITALS: BMI 34.7
[2019-07-14 12:46] LABS: BASOPHILS # (AUTO) 0.1 X10^3/uL (0.0-0.1); BASOPHILS % (AUTO) 1.1 % (0.2-1.0); EOSINOPHILS # (AUTO) 0.1 x10^3/uL (0.0-0.2); EOSINOPHILS % (AUTO) 1.6 % (0.9-2.9); HEMOGLOBIN 16.1 g/dL (13.5-18.0); LYMPHOCYTES # (AUTO) 2.3 X10^3/uL (1.3-2.9); LYMPHOCYTES % (AUTO) 34.1 % (21.0-51.0); MEAN CORPUSCULAR HEMOGLOBIN 30.2 pg (27.0-34.0); MEAN CORPUSCULAR HGB CONC 35.1 g/dL (33.0-35.0); MEAN PLATELET VOLUME 7.4 fL (7.4-11.0); MONOCYTES # (AUTO) 0.5 x10^3/uL (0.3-0.8); MONOCYTES % (AUTO) 7.6 % (0.0-13.0); NEUTROPHILS # (AUTO) 3.8 x10^3/uL (2.2-4.8); NEUTROPHILS % (AUTO) 55.6 % (42.0-75.0); PLATELET COUNT 260 X10^3/uL (150.0-450.0); RED BLOOD COUNT 5.35 X10^6/uL (4.7-6.0); RED CELL DISTRIBUTION WIDTH 13.7 % (11.6-16.5); WHITE BLOOD COUNT 6.8 X10^3/uL (3.6-10.0)
[2019-07-14] MEDS ORDERED: NITROSTAT SL PRN ×2 (12:54→17:06)
--- NOTE | 2019-07-14 12:58 | DR.CP ---
HPI Time Seen Time Seen by Provider: 07/14/19 12:48 PCP Primary Care Physician: CHERYL Yun [employer]URAL IRONWORKER Complaint Chief Complaint Doctor Comments: Pt presented for CP> pt reports waking up this morning with substernal CP and that radiates to back and left arm with numbness. He reports pressure like w/w 6/10. Denies any nausea, epigastric pain but was clamy this AM. He recently seen by PCP and started on Statin and referred to cardiology. He has not taken anything for pain nor asa. Chief Complaint:: PT C/O MID- STERNAL ( PRESSURE TO BACK AND IS RADIATING TO LEFT CHEST AND LEFT ARM ACHING"..) PT C/O PRESSURE TO BACK STARTED THIS AM AND THE LAST 40 MIN HIS LEFT ARM STARTED HURTING .. Self Treatment fo Chief Complaint: PT C/O INTERMITTANT SOB ,,BR ,, PT IS CALM AND PT WAS TOLD HIS LIPIDS AND CHOLERS - WERE HIGH AND TO COME TO ER IF ANY OTHER SYMPTOMS , Reviewed Nurses Notes Review: Yes Source History Provided: Patient Mode of Arrival Mode of Arrival: Ambulatory Timing Onset of Chief Complaint: 07/14/19 Duration Duration: Intermittent Duration: Hours (4) Location Location of Chest Pain: Chest Chest Pain Radiation Location: Left Arm and Left Shoulder Context Onset: With light exertion and While Asleep Cardiac Risk Factors: Family History and Hyperlipidemia; denies Smoker, HTN and Diabetes PE Risk Factors: None History of: None Quality Quality: Pressure like Modifying Factors Worsens: Exertion Impoves: Nothing Associated Signs and Symptoms Associated Signs and Symptoms: Shortness of Breath and Palpitations PMH PMH Past Medical History: Yes Past Medical History: Dyslipidemia Past Surgical History: Yes Surgical History: Appendectomy and Cholecystectomy Past Surgical History Comment: FINGER, MASS REMOVED FROM BACK 2001. SINUS, Family History History of Family Medical Conditions: No Family Medical History: Diabetes Mellitus and Coronary Artery Disease Social History Does patient currently use any type of tobacco product: No Have you used tobacco products in the last 12 months: No Type of Tobacco Use: None Does any household member use tobacco: No Alcohol Use: None Do you use any recreational Drugs:: No Lives With: Alone Lives Where: Home infectious screening In the last 2 months have you had wt loss of >10#?: NO Have you had fever, night sweats or hemotysis?: No Have you traveled outside the country in the last 6 months?: No Isolation: Standard ROS Review of Systems Constitutional: No Symptoms Reported; negative Fever and Weakness Eyes: negative Blurred Vision ENTM: negative Nose Congestion Respiratoy: Short of Breath Cardiovascular: Chest Pain; negative Edema and Palpitations Gastrointestinal/Abdominal: negative Abdominal Pain Genitourinary: negative Dysuria and Hematuria Neurological: Numbness (left arm) Musculoskeletal: negative Joint Swelling Integumentary: negative Rash Hematologic/Lymphatic: negative Easy Bleeding Psychiatric: No Symptoms Reported PE Vitals Vitals: Temperature 98.0 F Pulse Rate 77 Respiratory Rate 26 Blood Pressure [Left Arm] 118/78 Blood Pressure 128/82 O2 Sat by Pulse Oximetry 96 General Limitations: No Limitations Head Head Exam: Normal Inspection, Atraumatic and Normocephalic Eyes Eye exam: Normal Appearance and EOMI; negative Conjunctival Injection ENT ENT Exam: Normal Exam and Normal Oropharynx Chest Chest Inspection: Normal Inspection; negative Tenderness Respiratory Respiratory Exam: Normal Lung Sounds Bilat Respiratory Exam: Bilateral: Clear to Auscultation Cardiovascular Cardiovascular Exam: Regular Rate, Normal Rhythm and Normal Heart Sounds; negative Systolic Murmur Pulse: Normal and Radial Edema: Normal Abdominal Exam Abdominal Exam: Normal Inspection, Normal Bowel Sounds and Soft; negative Tenderness Extremities Extremities Exam: Normal Inspection, Full ROM and Normal Capillary Refill; negative Edema Back Back Exam: Normal Inspection and Tenderness Neurologic Neurological Exam: Alert, Oriented X3, Normal Gait and Reflexes Normal; negative Motor Sensory Deficit Psychiatric Psychiatric Exam: Normal Affect and Normal Mood MDM Differential Diagnosis Differential Diagnosis: Angina, Chest Wall Pain, Gastritis and Myocardial Infarction COURSE Reevaluation 1st: Improved (Pt given ASA and nitro now pain 3/10 and numbness resolved. Pt needs admission and further observation and evaluation for stress test) Consultation Called: 14:43 Call Returned: 14:43 Consultation Comments: Spoke to Dr. Rosario and will admit and see in hospital. Education/Counseling Education/Counseling: Patient, Education and Counseling Educated On: Treatment, Diagnosis, Prognosis and Needs for Follow Up (Cardiology) ROR Labs Reviewed Laboratory Results Reviewed?: Yes Result Diagrams: 07/14/19 12:36 07/14/19 12:36 Laboratory: WBC 6.8 X10^3/uL (3.6-10.0) 07/14/19 12:36 RBC 5.35 X10^6/uL (4.7-6.0) 07/14/19 12:36 Hgb 16.1 g/dL (13.5-18.0) 07/14/19 12:36 Hct 46.0 % (42.0-54.0) 07/14/19 12:36 MCV 86.0 fL (80.0-100.0) 07/14/19 12:36 MCH 30.2 pg (27.0-34.0) 07/14/19 12:36 MCHC 35.1 g/dL (33.0-35.0) H 07/14/19 12:36 RDW 13.7 % (11.6-16.5) 07/14/19 12:36 Plt Count 260 X10^3/uL (150.0-450.0) 07/14/19 12:36 MPV 7.4 fL (7.4-11.0) 07/14/19 12:36 Neut % (Auto) 55.6 % (42.0-75.0) 07/14/19 12:36 Lymph % (Auto) 34.1 % (21.0-51.0) 07/14/19 12:36 [place] % (Auto) 7.6 % (0.0-13.0) 07/14/19 12:36 Eos % (Auto) 1.6 % (0.9-2.9) 07/14/19 12:36 Baso % (Auto) 1.1 % (0.2-1.0) H 07/14/19 12:36 Neut # (Auto) 3.8 x10^3/uL (2.2-4.8) 07/14/19 12:36 Lymph # (Auto) 2.3 X10^3/uL (1.3-2.9) 07/14/19 12:36 [place] # (Auto) 0.5 x10^3/uL (0.3-0.8) 07/14/19 12:36 Eos # (Auto) 0.1 x10^3/uL (0.0-0.2) 07/14/19 12:36 Baso # (Auto) 0.1 X10^3/uL (0.0-0.1) 07/14/19 12:36 Absolute Nucleated RBC 0.0 /100WBC 07/14/19 12:36 INR Target Range - 07/14/19 12:36 INR 1.01 (0.8-1.3) 07/14/19 12:36 APTT 26.8 SECONDS (22.9-36.5) 07/14/19 12:36 PTT Comment - 07/14/19 12:36 D-Dimer 176 ng/mL (0-400) 07/14/19 12:36 Sodium 141 mmol/L (136-145) 07/14/19 12:36 Corrected Sodium TNP 07/14/19 12:36 Potassium 3.8 mmol/L (3.5-5.1) 07/14/19 12:36 Chloride 105 mmol/L (98-107) 07/14/19 12:36 Carbon Dioxide 27.5 mmol/L (21-32) 07/14/19 12:36 BUN 17 mg/dL (7-18) 07/14/19 12:36 Creatinine 1.10 mg/dL (0.70-1.30) 07/14/19 12:36 Est GFR (MDRD) Af Amer > 60 (>60) 07/14/19 12:36 Est GFR (MDRD) Non-Af > 60 (>60) 07/14/19 12:36 Glucose 108 mg/dL (65-99) H 07/14/19 12:36 Calcium 9.0 mg/dL (8.5-10.1) 07/14/19 12:36 Corrected Calcium TNP 07/14/19 12:36 Magnesium 1.9 mg/dL (1.7-2.9) 07/14/19 12:36 Total Bilirubin 0.30 mg/dL (0.2-1.0) 07/14/19 12:36 AST 23 Units/L (15-37) 07/14/19 12:36 ALT 43 Units/L (12-78) 07/14/19 12:36 Alkaline Phosphatase 85 Units/L (46-116) 07/14/19 12:36 Creatine Kinase 164 Units/L (39-308) 07/14/19 12:36 CK-MB (CK-2) 1.4 ng/mL (0-4.0) 07/14/19 12:36 CK/CKMB % Calc 0.9 % (<4) 07/14/19 12:36 Troponin I < 0.02 ng/mL (0-1.5) 07/14/19 12:36 Total Protein 7.4 g/dL (6.4-8.2) 07/14/19 12:36 Albumin 3.7 g/dL (3.4-5.0) 07/14/19 12:36 Globulin 3.7 g/dL (2.5-4.5) 07/14/19 12:36 Albumin/Globulin Ratio 1.0 Ratio (1.1-2.1) L 07/14/19 12:36 Other Results Comments: labs unremarkable XRAY XRAY Interpreted by: Radiologist XRAY Findings: agree with radiologist EKG Rate: 91 [place]: Normal Rhythm: NSR Hypertrophy: None ST: Normal Opioid Opioid Risk Tool Age (Antione box if 16-45): No History of Preadolescent Sexual Abuse: No Total: 0 Total Score Risk Category: Low Risk Copyright: Elias HORTON predicting aberrant behaviors Diagnosis Discharge Problem: Chest pain Qualifiers: Chest pain type: unspecified Qualified Code(s): R07.9 - Chest pain, unspecified Hyperlipidemia Qualifiers: Hyperlipidemia type: unspecified Qualified Code(s): E78.5 - Hyperlipidemia, unspecified Instructions Forms: Excuse From Work
[2019-07-14 13:03] LABS: BLOOD UREA NITROGEN 17 mg/dL (7-18); CARBON DIOXIDE 27.5 mmol/L (21-32); CHLORIDE 105 mmol/L (98-107); SODIUM 141 mmol/L (136-145); TROPONIN I < 0.02 ng/mL (0-1.5); eGFR NON BLACK RACES > 60 (>60)
[2019-07-14 13:06] LABS: ALANINE AMINOTRANSFERASE 43 Units/L (12-78); ALBUMIN 3.7 g/dL (3.4-5.0); ALKALINE PHOSPHATASE 85 Units/L (46-116); ASPARTATE AMINO TRANSFERASE 23 Units/L (15-37); CKMB % 0.9 % (<4); CREATINE KINASE 164 Units/L (39-308); CREATINE KINASE MB 1.4 ng/mL (0-4.0); MAGNESIUM 1.9 mg/dL (1.7-2.9); TOTAL PROTEIN 7.4 g/dL (6.4-8.2)
--- NOTE | 2019-07-14 13:34 | RAD ---
HISTORY: Chest pain, left arm pain. Prior history of hyperlipidemia Study: Single-view chest Comparison: 10/19/2018. Findings: Trachea is midline. Heart size is normal. There is elevation of the left hemidiaphragm with left perihilar atelectasis or infiltrate extending into the left lower lobe. Right lung is clear. No pleural fluid, CHF or pneumothorax is seen. Osseous structures intact. IMPRESSION: Left perihilar atelectasis or infiltrate extending into the left lower lobe. There is mild elevation the left hemidiaphragm. Reported By:
[2019-07-14] MEDS ORDERED: ASPIRIN ONE (13:42)
[2019-07-14] MEDS ORDERED: NORCO 5/325 MG TAB PO PRN (17:06)
[2019-07-14 17:43] LABS: CKMB % 0.8 % (<4); CREATINE KINASE 156 Units/L (39-308); CREATINE KINASE MB 1.2 ng/mL (0-4.0); TROPONIN I < 0.02 ng/mL (0-1.5)
[2019-07-14] MEDS ORDERED: MICRO K EXTEN CAP 10 MEQ PO PRN (17:45)
[2019-07-14] MEDS ORDERED: KLOR-CON PO PRN (17:45)
[2019-07-14] MEDS ORDERED: POTASSIUM CHLORIDE LIQ 20 MEQ UDC PO PRN (17:45)
[2019-07-14] MEDS ORDERED: MAGNESIUM SULFATE 1 GRAM/100 mL PREMIX 1 GM/100 ML BAG IV PRN (17:45)
[2019-07-14] MEDS ORDERED: POTASSIUM CHL 40 MEQ/NS 0.45% 500 ML IV PRN (17:45)
[2019-07-14] MEDS ORDERED: K-DUR TAB 20 MEQ PO PRN (17:45)
[2019-07-14] MEDS ORDERED: K-RIDER 10 MEQ/NS 100 ML 10 MEQ/100 ML BAG IV PRN (17:45)
[2019-07-14] MEDS ORDERED: POTASSIUM CHL 60 MEQ/NS 0.45% 500 ML IV PRN (17:45)
[2019-07-14] MEDS ORDERED: NORCO 5/325 MG TAB ONE (18:36)
[2019-07-14 23:29] LABS: CKMB % 0.6 % (<4); CREATINE KINASE 179 Units/L (39-308); CREATINE KINASE MB < 1.0 ng/mL (0-4.0); TROPONIN I < 0.02 ng/mL (0-1.5)
[2019-07-15 06:41] LABS: BASOPHILS # (AUTO) 0.1 X10^3/uL (0.0-0.1); EOSINOPHILS # (AUTO) 0.2 x10^3/uL (0.0-0.2); EOSINOPHILS % (AUTO) 2.7 % (0.9-2.9); HEMATOCRIT 43.7 % (42.0-54.0); HEMOGLOBIN 15.4 g/dL (13.5-18.0); LYMPHOCYTES # (AUTO) 3.3 X10^3/uL (1.3-2.9); LYMPHOCYTES % (AUTO) 49.4 % (21.0-51.0); MEAN CORPUSCULAR HEMOGLOBIN 30.4 pg (27.0-34.0); MEAN CORPUSCULAR HGB CONC 35.3 g/dL (33.0-35.0); MEAN CORPUSCULAR VOLUME 86.1 fL (80.0-100.0); MEAN PLATELET VOLUME 7.8 fL (7.4-11.0); MONOCYTES # (AUTO) 0.6 x10^3/uL (0.3-0.8); MONOCYTES % (AUTO) 9.2 % (0.0-13.0); NEUTROPHILS # (AUTO) 2.5 x10^3/uL (2.2-4.8); NEUTROPHILS % (AUTO) 37.7 % (42.0-75.0); PLATELET COUNT 243 X10^3/uL (150.0-450.0); RED BLOOD COUNT 5.08 X10^6/uL (4.7-6.0); RED CELL DISTRIBUTION WIDTH 13.5 % (11.6-16.5); WHITE BLOOD COUNT 6.6 X10^3/uL (3.6-10.0)
[2019-07-15 07:04] LABS: ALANINE AMINOTRANSFERASE 37 Units/L (12-78); ALBUMIN 3.3 g/dL (3.4-5.0); ALKALINE PHOSPHATASE 81 Units/L (46-116); ASPARTATE AMINO TRANSFERASE 20 Units/L (15-37); BLOOD UREA NITROGEN 18 mg/dL (7-18); CALCIUM 8.5 mg/dL (8.5-10.1); CARBON DIOXIDE 28.9 mmol/L (21-32); CHLORIDE 106 mmol/L (98-107); CHOL/HDL RATIO 6.4 (0.0-5.0); CHOLESTEROL 167 mg/dL (0-200); COR CA(FOR HYPOALB) 9.1 mg/dL (8.5-10.1); CREATININE 1.11 mg/dL (0.70-1.30); HDL CHOLESTEROL 26 mg/dL (40-60); SODIUM 142 mmol/L (136-145); TOTAL PROTEIN 6.7 g/dL (6.4-8.2); TRIGLYCERIDES 108 mg/dL (0-150); eGFR NON BLACK RACES > 60 (>60)
[2019-07-15 07:07] LABS: CKMB % 0.9 % (<4); CREATINE KINASE 150 Units/L (39-308); CREATINE KINASE MB 1.3 ng/mL (0-4.0); TROPONIN I < 0.02 ng/mL (0-1.5)
[2019-07-15] MEDS ORDERED: ASPIRIN PO SCH (09:00)
[2019-07-15 12:29] VITALS: BP 123/75
[2019-07-15] MEDS ORDERED: ASPIRIN PO ONE (12:55)
--- NOTE | 2019-08-03 20:52 | DR.CARTERS ---
Short Stay Summary - Admission Date Date of Admission: 07/14/19 - Discharge Date Discharge Date: 07/15/19 - Admission Diagnoses (1) Chest pain Status: Acute - Hospital Course Hospital Course: IS A 48 YEAR OLD PATIENT OF BESS CHRISTINA. HE PRESENTED TO THE ER WITH COMPLAITNS OF CHEST PAIN WITH RADIATION TO THE LEFT ARM AND BACK. HE ALSO REPORTED INTERMITTENT SHORTNESS OF BREATH. HE RATED PAIN 7/10 IN SEVERITY. SYMPTOMS REPORTEDLY STARTED ABOUT 3 HOURS PRIOR TO ARRIVAL. HE HAS RECENTLY SEEN HIS PCP AND WAS TOLD THAT HE HAD HIGH CHOLESTEROL. ON ARRIVAL TO THE ER, VITALS WERE 98.0-107-20-96%-135/93. LABS WERE OBTAINED. HE IS HEMODYNAMICALLY STABLE. CARDIAC ENZYMES WERE WITHIN NORMAL LIMITS. EKG REVEALED SINUS RHYTHM WITH HR 91. A CHEST XRAY WAS OBTAINED AND REVEALED: Left perihilar atelectasis or infiltrate extending into the left lower lobe. There is mild elevation the left hemidiaphragm. HE WAS GIVEN NITROGLYCERIN 0.4MG SL X 1 DOSE, ASPIRIN 325MG PO X 1. HE REPORTED SLIGHT IMPROVEMENT IN SYMPTOMS. HE WAS ADMITTED FOR FURTHER EVALUATION AND TREATMENT OF CHEST PAIN RULE OUT ACUTE MS. WE PLANNED TO OBTAIN SERIAL CARDIAC ENZYMES AND EKGS. ON THE MORNING FOLLOWING ADMISSION, PATIENT WAS ALERT AND ORIENTED, LYING IN BED ON MORNING ROUNDS. HE DENIED CHEST PAIN OR SHORTNESS OF BREATH AND REPORTED FEELING WELL. ON EXAMINATION, HEART WAS REGULAR IN RATE AND RHYTHM. BILATERAL LUNGS WERE CLEAR TO AUSCULTATION. ABDOMEN WAS ROUND, SOFT, AND NON-TENDER WITH NORMAL BOWEL SOUNDS NOTED IN ALL QUADRANTS. HIS VITALS ON MORNING ROUNDS WERE 98.0-70-18-98%-129/79. LIPID PANEL REVEALED THE FOLLOWING ABNORMAL VALUES: LDL 119, HDL 26. CARDIAC ENZYMES WERE WITHIN NORMAL LIMITS. NO CHANGES NOTED TO EKGs. WE PLANNED FOR DISCHARGE. INSTRUCTIONS FOR MEDICATIONS AND FOLLOW UP WERE DISCUSSED WITH PATIENT. HE VERBALIZED UNDERSTANDING. HE WAS DISCHARGED HOME WITH PRESCRIPTIONS FOR ECOTRIN 81MG PO DAILY AND WAS INSTRUCTED TO CONTINUE HIS ROSUVASTATIN. HE WAS INSTRUCTED TO FOLLOW UP WITH PCP ON 07/20/19 AT 14:0. HE WAS DISCHARGED HOME WITH FAMILY IN STABLE CONDITION. - Discharge Medications Discharge Medications: Home Medication List rosuvastatin [Crestor] 20 mg PO HS 07/14/19 [History] aspirin [Ecotrin Low Strength] 81 mg PO QDAY #100 tab 07/15/19 [Rx] Prescriptions: aspirin [Ecotrin Low Strength] Hansel Rosario Prescription drug monitoring program results: PDMP was not reviewed - Discharge Plan Disposition: HOME, SELF-CARE Condition: Stable Prescriptions: aspirin [Ecotrin Low Strength] 81 mg PO QDAY #100 tab - Follow up/Referrals Follow up/Referrals: Juan Ascencio [STAFF PHYSICIAN] - 1 WEEK (REFERRAL MADE VIA FAX- THEY WILL CONTACT PATIENT WITH APPOINTMENT) Bess Renee [Primary Care Provider] - 07/20/19 2:00 pm - Instructions Instructions: Cholesterol, [id number], Nonspecific Chest Pain, Chest Wall Pain, Angina Pectoris, [id number] Additional Instructions: DIET TOLERATED. ACTIVITY TOLERATED. REFERRAL TO , [employer] Forms: Excuse From Work
== END 2019-07-15 14:10 | disposition home or self-care (01) ==
LOC: ER 12:12 → MED/SURG 12:12
PROVIDERS: ADMIT Internal Medicine; ATTEND Internal Medicine
DX: E78.5 Hyperlipidemia, unspecified; R07.89 Other chest pain
CPT/HCPCS: 36415; 71010; 71045; 80053; 80061; 82550; 82553; 83735; 84484; 85025; 85378; 85610; 85730; 93005; 94760; 96365; 99284; A4216; A4222; G0378